=== PATIENT | male | born 1990 | race Caucasian/White ===

== ENCOUNTER → 2019-10-30 | Outpatient (CLI) | payer OTHER ==
--- NOTE | 2019-10-30 08:41 | RAD ---
EXAM: SKULL 2V. 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 COMPARISON: None. FINDINGS: No metallic foreign body projects over the calvarium or orbits. A mucous retention cyst is suspected in the left maxillary sinus inferiorly. IMPRESSION: 1. No evidence of orbital or intracranial metallic foreign body. Electronically signed by: Yanet Taylor MD (10/30/2019 8:38 AM) [id number]
--- NOTE | 2019-10-30 09:35 | RAD ---
Examination: MRI of the right shoulder without contrast HISTORY: History of right shoulder pain status post softball injuries COMPARISON: None available Technique: Multiplanar multisequence MR imaging of the right shoulder performed without contrast. FINDINGS: The long head of the biceps tendon within the bicipital groove. The attachment of the long head the biceps tendon to the superior labral anchor grossly appears intact.. The attachment of the subscapularis tendon, supraspinatus, infraspinatus tendon grossly appears intact. There is increased T2 signal identified in the posterior superior labrum likely labral tear with multiloculated cystic structure extending superiorly and posteriorly to the superior labrum measuring 4 cm likely paralabral cyst just inferior to the supraspinatus muscle posteriorly. There is increased T2 signal/edema identified about this cyst. There is increased signal identified in the inferior labrum likely tear with small paralabral cyst measuring 5 mm extending medially. 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 Mild degenerative changes acromioclavicular joint. The acromion is type II. The muscle bulk grossly appears unremarkable. IMPRESSION: 1. Tear of the posterior superior labrum with a 4 cm multiloculated cystic structure likely paralabral cyst extending medially from the labrum extending inferior and posterior to the supraspinatus muscle. 2. Small labral tear inferiorly with small paralabral cyst measuring 5 mm extending medially. Electronically signed by: Mike Hernandez MD (10/30/2019 9:33 AM) [id number]
== END | disposition home or self-care (01) ==
LOC: MRI 11:24
PROVIDERS: ATTEND Physician Assistant Medical
DX: S43.431A Superior glenoid labrum lesion of right shoulder, initial encounter (principal); M19.011 Primary osteoarthritis, right shoulder; X58.XXXA Exposure to other specified factors, initial encounter; Y93.89 Activity, other specified; Y92.89 Other specified places as the place of occurrence of the external cause; Y99.8 Other external cause status
CPT/HCPCS: 70250; 73221